=== PATIENT | male | born 1970 | race African-American/Black ===

== ENCOUNTER 2016-09-19 16:59 | Emergency (ER) | payer OTHER, MEDICARE ==
--- NOTE | ~2016-09-19 | CR229 ---
[facility]. [facility] A Service of [facility] & [facility] RADIOLOGY TEXT RESULTS PATIENT: ANEESH WILBURN LOCATION: SED : 70 UNIT #: [id number] AGE: [address]: DILLON SHAH SEX: M ORDER DR: [id number] [place] [id number] E MR#: [id number] Acc #: [id number] NAME: ANEESH WILBURN : 1970 SEX: M STUDY DATE/TIME: 09/19/2016 16:54 UNIT: SED ROOM: STUDY DESCRIPTION: CR Shoulder Min 2 View Lt Attending Physician: Dillon Sahh Ordering Physician: Physician Non-Staff Primary Care Physician: Primary Care Physician No MEDICAL IMAGING REPORT This report is preliminary unless electronic signature is present. EXAM Left shoulder 3 views, 09/19/2016 HISTORY Shoulder pain after fall today. FINDINGS AP view with internal and external rotation of the shoulder girdle shows satisfactory relationship of the humeral head and glenoid fossa. The joint space is normal. There is no identifiable fracture or dislocation or bony destructive process about the shoulder girdle anatomy. The acromioclavicular joint is normal. There is no radiopaque foreign body in the region. IMPRESSION Normal shoulder. Dictated by... Fito Lee M.D. THIS IS AN ELECTRONICALLY VERIFIED REPORT Fito Lee M.D. at 09/21/2016 12:23 PM KATE/ivy TD: 09/20/2016 22:48 JOB #: [id number] MEDICAL IMAGING REPORT
--- NOTE | ~2016-09-19 | CR281 ---
[facility]. [facility] A Service of [facility] & [facility] RADIOLOGY TEXT RESULTS PATIENT: ANEESH WILBURN LOCATION: SED : 70 UNIT #: [id number] AGE: [address]: DILLON SHAH SEX: M ORDER DR: [id number] [place] [id number] E MR#: [id number] Acc #: [id number] NAME: ANEESH WILBURN : 1970 SEX: M STUDY DATE/TIME: 09/19/2016 16:58 UNIT: SED ROOM: STUDY DESCRIPTION: CR Wrist Min 3 View Lt Attending Physician: Dillon Shah Ordering Physician: Physician Non-Staff Primary Care Physician: Primary Care Physician No MEDICAL IMAGING REPORT This report is preliminary unless electronic signature is present. EXAM Left wrist 3 views, 09/19/2016 HISTORY Wrist pain after fall today. FINDINGS Wrist evaluation in multiple projections shows normal mineralization of the bony structures about the wrist and satisfactory articular relationship of the radius and ulna to the proximal carpal row and of the distal carpal segments to the metacarpal bases. There is no indication of fracture or dislocation, and no soft tissue radiopaque foreign body is present. No congenital defects are apparent. IMPRESSION Normal wrist. Dictated by... Fito Lee M.D. THIS IS AN ELECTRONICALLY VERIFIED REPORT Fito Lee M.D. at 09/21/2016 12:23 PM KATE/ivy TD: 09/20/2016 22:52 JOB #: [id number] MEDICAL IMAGING REPORT
[~2016-09-19 16:59] MED LIST: ATARAX; ATARAX PO; CALCIUM500 MG; FISH OIL300 MG; HYDROCODON-ACE1 EA11; NEXIUM PO; NORCO 10/325 TA1 TAB PO; OXYCONTIN PO; PENTOXIFYLLINE PO; PERCOCET10; PREDNISONE PO; PREVACID PO; RIFAMPIN PO; SKELAXIN PO; URSODIOL PO; [UNRECOGNIZED DRUG - OTHER] PO; [UNRECOGNIZED DRUG - OTHER] PO
[2016-10-09] MEDS ORDERED: HYDROCODON-ACE1 EAC5 PO (11:25)
[2016-10-09] MEDS ORDERED: PREDNISONE10 MG PO (11:26)
[2016-10-09] MEDS ORDERED: PHENERGAN25 M1 (11:26)
[2016-10-09] MEDS ORDERED: RIFAMPIN150 MG PO (11:27)
[2016-10-09] MEDS ORDERED: ACTIGALL300 MG PO (11:27)
[2016-10-09] MEDS ORDERED: PENTOXIFYLLINE (11:28)
== END 2016-09-19 18:40 | disposition home or self-care (01) ==
LOC: SED 16:59
DX: S49.92XA Unspecified injury of left shoulder and upper arm, initial encounter (principal); S69.91XA Unspecified injury of right wrist, hand and finger(s), initial encounter; F17.210 Nicotine dependence, cigarettes, uncomplicated; W19.XXXA Unspecified fall, initial encounter; Y92.009 Unspecified place in unspecified non-institutional (private) residence as the place of occurrence of the external cause
CPT/HCPCS: 73030; 73110; 99284

== ENCOUNTER → 2016-10-13 | Day surgery (SDC) | payer MEDICARE ==
[~2016-10-13] MED LIST changes: +ACTIGALL300 MG PO; +HYDROCODON-ACE1 EAC5 PO; +PENTOXIFYLLINE; +PHENERGAN25 M1; +PREDNISONE10 MG PO; +RIFAMPIN150 MG PO
--- NOTE | ~2016-10-13 | OR ---
Unit #: [id number] #: [id number] Patient: ANEESH WILBURN [id number] [address] [address] [id number] O MR#: [id number] NAME: ANEESH WILBURN ROOM: Date of Procedure: 10/13/2016 Admission Date: 10/13/2016 Surgeon: Kenny Alexander M.D. : 1970 Attending Physician: Kenny Alexander M.D. Referring Physician: Kenny Alexander M.D. OPERATIVE REPORT PREOPERATIVE DIAGNOSIS Left shoulder massive rotator cuff tear. POSTOPERATIVE DIAGNOSIS Left shoulder massive rotator cuff tear. PROCEDURE PERFORMED Left shoulder arthroscopic rotator cuff [place], [address]. AUTO B[employer] REPAIR TECHNICIAN Reji Melendez CFA. ANESTHESIA General endotracheal. COMPLICATIONS None. SPECIMENS None. DRAINS None. SURGICAL IMPLANTS 1. Two 2.9 mm JuggerKnot suture anchors. 2. Two 4.5 mm self-tapping Cay[place] knotless anchors. 3. One 5.5 mm Biomet knotless suture anchor. INDICATION FOR PROCEDURE Aneesh is a 46-year-old male, who slipped and fell getting out of his car hyperabducting his left shoulder. He was unable to lift the arm. He was sent for an MRI, noted to have a massive rotator cuff tear of the entire supraspinatus and infraspinatus. Based on the patient's age, function, and injuries, it was felt that he would benefit from surgical repair. He is left-hand dominant. There was some mild atrophy noted, so he likely had an underlying supraspinatus tear as well. Risks, benefits, and alternatives of surgery were discussed with the patient. Informed consent was obtained. Risks include, but not limited to, infection, bleeding, nerve injury, blood clots, risks associated with anesthesia, need for further surgery, re-tear, and possibly . Unit #: [id number] #: [id number] Patient: ANEESH WILBURN DESCRIPTION OF PROCEDURE On 10/13/2016, the patient was seen in preoperative holding area, where his surgical site was marked. Preoperative antibiotics were received. H and P and consent updated. Preoperative block was performed. The patient was taken to the operating room and provided general anesthesia. He was placed in beach chair position. All bony prominences were well padded. Head and neck kept in neutral position at all times. Left upper extremity was then prepped and draped in typical sterile fashion. Time-out was performed confirming the correct surgical site and procedure. At this point, standard posterior portal was created with an 11-blade. A blunt trocar carefully inserted into the joint. Next, the anterior portal was created. Full inventory of the shoulder was performed. Massive rotator cuff tear noted. The entire supraspinatus and infraspinatus were detached and retracted. Biceps tendon intact. Articular cartilage intact. At this point, the scope was placed into the subacromial space. A thorough bursectomy performed to better visualize the rotator cuff. Direct lateral portal created. The rotator cuff was mobilized. Greater tuberosity was then prepared and a bleeding bed was created. Stab incision made just off the acromion. A guide was placed and two JuggerKnot suture anchors were double loaded were placed. At this point, the sutures were passed from anterior to posterior in a mattress fashion. They were shuttled through the anterior and superior portals. Next, the anterior sutures were then tied from anterior to posterior for the medial row. Once this was complete, it was felt a lateral row would better reduce the rotator cuff and aid in the repair. Sutures were crisscrossed and two lateral row anchors were placed securing the lateral aspect of the footprint. Sutures were cut flush at the knotless anchors. There was a small anterior supraspinatus tear still noted. A free MaxBraid suture was then passed in a mattress fashion through this portion. A 5.5 knotless anchor was then placed laterally and the MaxBraid suture was dumped into this reducing the remainder of the anterior supraspinatus. Sutures again were cut. Final images were taken confirming appropriate repair of the massive rotator cuff tear. At this point, all instruments were removed. Wound was thoroughly irrigated. The four wounds were closed with 3-0 nylon suture. Gauze, ABD pad, and tape were placed. A sling immobilizer was placed. The patient was subsequently awakened from general anesthesia in stable condition and taken to PACU postoperatively. POSTOPERATIVE PLAN The patient will be discharged home. He will do pendulums and be nonweightbearing on the left upper extremity. Follow up in the office in 7 to 10 days. No complications were encountered during the surgical procedure. Dictated by... Rosemarie Mackenzie/nika TD: 10/14/2016 06:33 JOB #: [id number] Unit #: [id number] #: [id number] Patient: ANEESH WILBURN OPERATIVE REPORT Page 1 of 1 X X PROCEDURE OPERATIVE NOTE
== END | disposition home or self-care (01) ==
LOC: CSUR 08:45
DX: S46.012A Strain of muscle(s) and tendon(s) of the rotator cuff of left shoulder, initial encounter (principal); J45.909 Unspecified asthma, uncomplicated; K21.9 Gastro-esophageal reflux disease without esophagitis; F17.210 Nicotine dependence, cigarettes, uncomplicated; V87.8XXA Person injured in other specified noncollision transport accidents involving motor vehicle (traffic), initial encounter
CPT/HCPCS: C1713; J0171; J0330; J0690; J1170; J1720; J2250; J2710; J2795; J3010